=== PATIENT | male | born 1945 | race Caucasian/White ===

== ENCOUNTER 2024-02-06 09:50 | Outpatient (AMB) | payer OTHER, SELFPAY ==
--- NOTE | 2024-02-06 10:09 | HO.SPINEOV ---
Intake Visit Reasons: second opinion Allergies amoxicillin [From Augmentin] Allergy (Severe, Verified 02/06/24 10:15) Chest Pain clavulanic acid [From Augmentin] Allergy (Severe, Verified 02/06/24 10:15) Chest Pain colesevelam [From WelChol] Allergy (Severe, Verified 02/06/24 10:15) Diarrhea metoprolol Allergy (Severe, Verified 02/06/24 10:15) bradycardia lethargic ticagrelor [From Brilinta] Allergy (Severe, Verified 02/06/24 10:15) Respiratory Distress diclofenac [From Voltaren] Allergy (Unknown, Verified 02/06/24 10:15) dermatitis evolocumab [From Repatha SureClick] Allergy (Unknown, Verified 02/06/24 10:15) abscess and Boils Latex, Natural Rubber Allergy (Unknown, Verified 02/06/24 10:15) dermatitis Chocolate Allergy (Verified 02/06/24 10:15) Migraine aged cheese Allergy (Severe, Uncoded 02/06/24 10:15) Migraine Assessment & Plan Assessment & Plan (1) Gait abnormality: Code(s): R26.9 - Unspecified abnormalities of gait and mobility Category: Medical Plan This is a very nice 79-year-old [place] who presents today for evaluation of low back pain going down to his right posterior hamstring area as well as his right anterior thigh. He has had the symptoms now for few years and getting steadily worse. He underwent physical therapy and care tech. He saw Dr. Rogers in [place] who has a spine surgeon and was given the option of a 2 level lumbar fusion. He is being seen here today for evaluation of a 2nd opinion. The patient tells me that the pain is affecting his quality of life and his ability to function and mobilize. He has frequent falls and his reports that he has had to put a chairlift in the house because he can not get down the basement steps any longer. He has had a number of falls that have led to fractures. His also reports that he at times accident usual and can say things that may be do not fit with the appropriate social situation. He seems to be at times not thinking clearly either. 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 He had a UroLift procedure for his prostate. He did have exposure to agent orange when he was in the [place] war, but is not sure what side effects may have been caused by it. He denies any problems with his kidneys, lungs, liver. His and daughter suspect he may have had a stroke but he has never had it looked into. He denies any problems with bleeding disorders, blood clots, major abdominal surgeries, cancer. Social hx: He quit smoking in 2006, quit drinking in 1997 and uses no recreational drugs. Medications: BuSpar, hydrochlorothiazide, Viagra, sumatriptan, multivitamin, vitamin-C, magnesium, baby aspirin, trazodone, melatonin, the Jered root, betamethasone, Colace, brain inhaler, Flonase Allergies: He has allergies as listed in the [employer] list Physical exam: He is awake alert oriented, he is somewhat bradykinetic and slow with his movements. He is able to stand up out of a chair on his own but almost fell down when trying to get up onto the examining table. I watched him walk in the hallways and he is very unsteady. He has a levoscoliotic curvature to his spine when he stands. On static motor strength testing, he does have weakness of his hands bilaterally, worse on the left. His proximal motor strength in lower extremity strength is normal. He has 3+ reflexes on the right and 4+ reflexes on the left with a Daniel sign and clonus in his left ankle. He also has 1 beat of clonus in his right ankle as well. Cranial nerve testing is intact, he may have a slight pronator drift on the right arm. Imaging review: He has a lumbar MRI done at the [facility] showing severe stenosis at L4-5 with spondylolisthesis. Has other degenerative changes at L3-4 and L4-5 which are moderate. 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 I suspect this is where symptoms are coming from. He saw another surgeon Dr Rogers in [place] who wants to do what sounds like a two-level lumbar fusion. On my evaluation today, certainly he does have findings on the MRI to explain his symptoms but I am concerned about some other findings that I am seeing on his examination and his history. His family reports a distinct change in his affect, he has had increased frequency of falls over the last year. He has hyperreflexia unilaterally on the left. He also may have a slight pronator drift on the right. I am concerned that he may either have a cervical myelopathy given his hyperreflexia and his history of falls, or that he has some kind of brain pathology such as an old stroke, or possibly a subdural hematoma. Before considering anything with his back we need to look into these 2 issues. Thank you for allowing us to care for your patient. The total time spent with this visit with this patient was 45 minutes reviewing history, physical exam, lumbar imaging review, and implementation of treatment plan or further diagnostic testing Luis Felipe Loya MD,PhD [facility] Orders: Orders MR head/brain wo con Today R26.9 - Unspecified abnormalities of gait and mobility MR cervical spine wo con Today R26.9 - Unspecified abnormalities of gait and mobility Coding Level of Care Code New Pt Level 4 (32705) Diagnoses Gait abnormality R26.9
== END 2024-02-06 11:40 | disposition home or self-care (01) ==
PROVIDERS: PCP Internal Medicine; Visit Provider Physician Assistant
DX: R26.9 Unspecified abnormalities of gait and mobility (principal)
CPT/HCPCS: 99204

== ENCOUNTER → 2024-02-06 09:50 | Outpatient (BNVA) | payer OTHER, SELFPAY | PROVIDERS: PCP Internal Medicine; Visit Provider Physician Assistant ==

== ENCOUNTER 2024-03-12 15:00 | Outpatient (REF) | payer OTHER, SELFPAY ==
--- NOTE | ~2024-03-12 | XR_ITS ---
EXAMINATION: XR LUMBOSACRAL SPINE WITH OBLIQUES CLINICAL INFORMATION: Unspecified abnormalities of date and mobility COMPARISON: None available. TECHNIQUE: AP, both oblique, and lateral views of the lumbar spine. Lateral view of the lumbosacral junction. FINDINGS: There is levoscoliosis of lumbar spine and straightening of lumbar lordosis with multilevel degenerative spondylosis, including multilevel narrowing of the intervertebral disc spaces, more prominent at the level of L2-L3 with extensive marginal spurring. There is narrowing of L3-L4 and L4-L5 also. Flexion and extension views revealed no significant instability. Soft tissues are unremarkable. Visualized sacroiliac joints unremarkable XR/XR lumbar spine 4V min IMPRESSION: Multilevel degenerative spondylosis and levoscoliosis of lumbar spine
== END 2024-03-12 15:01 | disposition home or self-care (01) ==
LOC: HO.HOSX 15:00
PROVIDERS: PCP Internal Medicine; Visit Provider Physician Assistant
DX: R26.9 Unspecified abnormalities of gait and mobility (principal); M47.896 Other spondylosis, lumbar region
CPT/HCPCS: 72110

== ENCOUNTER 2024-03-12 15:00 | Outpatient (AMB) | payer OTHER, SELFPAY ==
--- NOTE | 2024-03-12 15:01 | A.SPINEOV_ITS ---
Intake Visit Reasons: MRI follow up Intake Note: Mr. Guidry is here today to F/u on MRI results. Program Arranger Required: No Allergies amoxicillin [From Augmentin] Allergy (Severe, Verified 02/06/24 10:15) Chest Pain clavulanic acid [From Augmentin] Allergy (Severe, Verified 02/06/24 10:15) Chest Pain colesevelam [From WelChol] Allergy (Severe, Verified 02/06/24 10:15) Diarrhea metoprolol Allergy (Severe, Verified 02/06/24 10:15) bradycardia lethargic ticagrelor [From Brilinta] Allergy (Severe, Verified 02/06/24 10:15) Respiratory Distress diclofenac [From Voltaren] Allergy (Unknown, Verified 02/06/24 10:15) dermatitis evolocumab [From Repatha SureClick] Allergy (Unknown, Verified 02/06/24 10:15) abscess and Boils Latex, Natural Rubber Allergy (Unknown, Verified 02/06/24 10:15) dermatitis Chocolate Allergy (Verified 02/06/24 10:15) Migraine aged cheese Allergy (Severe, Uncoded 02/06/24 10:15) Migraine Assessment & Plan Assessment & Plan (1) Gait abnormality: Code(s): R26.9 - Unspecified abnormalities of gait and mobility Category: Medical Plan Mr Guidry came in today to review his cervical MRI in his brain MRI. Please refer to my last note for the specifics of his problem we been dealing with. Unfortunately he did not bring the disc so I am unable to review the actual images, but the report suggests there has no significant spinal cord compression, cord signal change or mass lesions in the brain to explain his issues with mentation and his hyperreflexia. His hyperreflexia could be due to his BuSpar. He continues to sarabia with the right leg pain going into his posterior and anterior thigh. That is the original reason he came to see us. His tells me at this point he is very limited with any mobility. The pain is so bad that he wants to cry. He is now transitioned himself to a walker because he can barely get up and stand on his right leg. I reviewed his MRI done at [facility] with him again today, he has diffuse arthritis of the lumbar spine. 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 At L4-5 he has a spondylolisthesis with severe central canal stenosis. It is a grade 1 spondylolisthesis. At L3-4 he has an overgrowth of the facet on the right side. He also has other degenerative changes up at L1-2 and L2-3. I did standing x-rays and these show that it looks like he has significant collapse on the right L3-4 with a scoliotic curvature in addition to the spondylolisthesis at L4-5. It is hard to see on the x-ray L5-S1 is completely auto fused or not. I explained to him that the typical approach Dr. Loya would choose for this would be an oblique lumbar interbody fusion. This would give him the option of the biggest cage and the chance for correction of the scoliosis with the most structural support. Alternatively, a trans Kambin approach can also be used. I will review all the imaging with Dr. Loya and get back to the patient with a final plan. I would like to get a hard copy of the discs of the cervical and brain MRI just to review myself. Pt was given risk and benefits of surgery including but not limited to infection, hematoma , nerve injury,durotomy, weakness,bowel/bladder injury, persistent pain, hardware failure as well as the option to continue with conservative treatment and patient wishes to proceed with surgery. Pt is aware they should stop their motrin, aspirin 7 days prior to surgery. All questions were answered to the best of our ability. Total amount of time spent in this visit was 20 minutes in discussion of symptoms, lumbar imaging results and subsequent plan of care Luis Felipe Loya MD,PhD [facility] Orders: Orders XR lumbar spine 4V min Today R26.9 - Unspecified abnormalities of gait and mobility Coding Level of Care Code Est Pt Level 3 (09440) Diagnoses Gait abnormality R26.9
== END 2024-03-12 15:36 | disposition home or self-care (01) ==
PROVIDERS: PCP Internal Medicine; Visit Provider Physician Assistant
DX: R26.9 Unspecified abnormalities of gait and mobility (principal)
CPT/HCPCS: 99213

== ENCOUNTER 2024-04-21 08:23 | Inpatient (IN) | payer MEDICARE, SELFPAY ==
[2024-04-13 16:47] VITALS: BMI 35.0
--- NOTE | 2024-04-20 11:58 | HO.ANESPROP2 ---
Documented by User: Cecile Awad NP 04/20/24 12:00 HPI - Anesthesia Eval Consult details Narrative: 79yo M for L3-4,L4-5 Oblique Lumbar Interbody Fusion Medically optimized per PCP [facility] Active Problems Active Problems: All Active Problems Gait abnormality (Acute) Past Medical History Medical History Dependent on walker for ambulation BPH (benign prostatic hyperplasia) Depression COPD (chronic obstructive pulmonary disease) Personal history of COVID-19 (~08/2023) Sleep apnea Migraine Anxiety HTN (hypertension) Surgical History Surgical History History of varicose vein procedure History of total bilateral knee replacement (TKR) Hx of hernia repair History of surgery on lower extremity History of surgery on wrist Hx of basal cell carcinoma excision Social History Social History Are you a primary direct care specialist to a significant other at home: No Do you presently have visiting nurse or other home services: No Comment: aware of trip hazard Patient Tobacco Use Status: Former Tobacco user Tobacco use type: Cigarette Smoked in Last 30 Days: No Use of substances other than those prescribed or required for medical reasons: No Have you been hit, kicked, punched, or otherwise hurt by someone within the past year? If so, by whom?: No Are you DNR?: No Advance Directives: No Advance Directives Information Provided: Yes Advance Directives on File: No Recently lost weight without trying: No Nutrition Risks: Surgical patient >75years Poor oral hygiene: No Meds Allergies Allergy/AdvReac Type Severity Reaction Status Date / Time amoxicillin [From Augmentin] Allergy Severe Chest Pain Verified 04/21/24 08:47 Chocolate Allergy Severe Migraine Verified 04/21/24 08:47 clavulanic acid Allergy Severe Chest Pain Verified 04/21/24 08:47 [From Augmentin] colesevelam [From WelChol] Allergy Severe Diarrhea Verified 04/21/24 08:47 diclofenac [From Voltaren] Allergy Severe dermatitis Verified 04/21/24 08:47 evolocumab Allergy Severe abscess Verified 04/21/24 08:47 [From Repatha SureClick] and Boils Latex, Natural Rubber Allergy Severe dermatitis Verified 04/21/24 08:47 metoprolol Allergy Severe bradycardia Verified 04/21/24 08:47 lethargic ticagrelor [From Brilinta] Allergy Severe Respiratory Verified 04/21/24 08:47 Distress atorvastatin [From Lipitor] Allergy myositis Verified 04/21/24 08:47 rosuvastatin [From Crestor] Allergy myositis Verified 04/21/24 08:47 aged cheese Allergy Severe Migraine Uncoded 02/06/24 10:15 Home Medications ?Medication ?Instructions ?Recorded ?Confirmed ?Last Taken ?Type aspirin 81 mg tablet,delayed 81 mg PO DAILY 02/06/24 04/16/24 04/07/24 History release buspirone 30 mg tablet 30 mg PO BID 02/06/24 04/13/24 04/21/24 06:00 History sildenafil 100 mg tablet 100 mg PO DAILY PRN Sexual Activity 02/06/24 04/16/24 Unknown History losartan 50 mg-hydrochlorothiazide 1 tab PO DAILY 04/13/24 04/13/24 04/20/24 History 12.5 mg tablet melatonin 5 mg tablet 5 mg PO BEDTIME PRN Insomnia 04/13/24 04/13/24 04/20/24 History multivitamin 1 tab PO DAILY 04/13/24 04/13/24 04/20/24 History nystatin 100,000 unit/gram topical topical TID 04/13/24 Unknown History powder (Nystop) sumatriptan succinate 50 mg tablet 50 mg PO Q2-4H PRN Headache 04/13/24 04/13/24 Unknown History tadalafil 5 mg tablet (Cialis) 5 mg PO DAILY 04/13/24 04/13/24 Unknown History trazodone 50 mg tablet 25 mg PO BEDTIME PRN Sleep 04/13/24 04/13/24 Unknown History ascorbic acid (vitamin C) 500 mg 1,000 mg PO DAILY 04/16/24 04/16/24 Unknown History tablet,extended release (Vitamin C ER) budesonide-formoterol HFA 160 2 puff inhalation DAILY 04/16/24 04/16/24 04/20/24 History mcg-4.5 mcg/actuation aerosol inhaler (Breyna) docusate sodium 100 mg tablet 100 mg PO DAILY PRN Constipation 04/16/24 04/16/24 Unknown History fluticasone propionate 50 2 spray intranasal DAILY 04/16/24 04/16/24 04/20/24 History mcg/actuation nasal spray,suspension magnesium 200 mg tablet 200 mg PO DAILY 04/16/24 04/16/24 04/20/24 History melatonin 10 mg tablet 10 mg PO BEDTIME PRN Insomnia 04/16/24 04/16/24 Unknown History valerian root 450 mg capsule 450 mg PO DAILY 04/16/24 04/16/24 04/20/24 History Exam Height,Weight and Vital Signs: Height 5 ft 8 in Weight 104.326 kg Pertinent Lab Results Pertinent Lab Results: Laboratory Tests 04/16/24 10:08 Blood Type A Positive Antibody Screen NEGATIVE CBC and BMP from outside facility 03/2024 WNL Narrative Narrative: EKG 03/2024 NSR Assessment and Plan Assessment Anesthesia Assessment: Chart Reviewed Documented by User: Mohan Duckworth MD 04/21/24 11:03 [facility] Past Medical History Medical History Dependent on walker for ambulation BPH (benign prostatic hyperplasia) Depression COPD (chronic obstructive pulmonary disease) Personal history of COVID-19 (~08/2023) Sleep apnea Migraine Anxiety HTN (hypertension) Family History Family history of problems with anesthesia: No Surgical History Surgical History History of varicose vein procedure History of total bilateral knee replacement (TKR) Hx of hernia repair History of surgery on lower extremity History of surgery on wrist Hx of basal cell carcinoma excision History of Problems with Anesthesia: No Social History Social History Are you a primary direct care specialist to a significant other at home: No Do you presently have visiting nurse or other home services: No Comment: aware of trip hazard Patient Tobacco Use Status: Former Tobacco user Tobacco use type: Cigarette Smoked in Last 30 Days: No Use of substances other than those prescribed or required for medical reasons: No Have you been hit, kicked, punched, or otherwise hurt by someone within the past year? If so, by whom?: No Are you DNR?: No Advance Directives: No Advance Directives Information Provided: Yes Advance Directives on File: No Recently lost weight without trying: No Nutrition Risks: Surgical patient >75years Poor oral hygiene: No Meds Allergies Allergy/AdvReac Type Severity Reaction Status Date / Time amoxicillin [From Augmentin] Allergy Severe Chest Pain Verified 04/21/24 08:47 Chocolate Allergy Severe Migraine Verified 04/21/24 08:47 clavulanic acid Allergy Severe Chest Pain Verified 04/21/24 08:47 [From Augmentin] colesevelam [From WelChol] Allergy Severe Diarrhea Verified 04/21/24 08:47 diclofenac [From Voltaren] Allergy Severe dermatitis Verified 04/21/24 08:47 evolocumab Allergy Severe abscess Verified 04/21/24 08:47 [From Repatha SureClick] and Boils Latex, Natural Rubber Allergy Severe dermatitis Verified 04/21/24 08:47 metoprolol Allergy Severe bradycardia Verified 04/21/24 08:47 lethargic ticagrelor [From Brilinta] Allergy Severe Respiratory Verified 04/21/24 08:47 Distress atorvastatin [From Lipitor] Allergy myositis Verified 04/21/24 08:47 rosuvastatin [From Crestor] Allergy myositis Verified 04/21/24 08:47 aged cheese Allergy Severe Migraine Uncoded 02/06/24 10:15 Home Medications ?Medication ?Instructions ?Recorded ?Confirmed ?Last Taken ?Type aspirin 81 mg tablet,delayed 81 mg PO DAILY 02/06/24 04/16/24 04/07/24 History release buspirone 30 mg tablet 30 mg PO BID 02/06/24 04/13/24 04/21/24 06:00 History sildenafil 100 mg tablet 100 mg PO DAILY PRN Sexual Activity 02/06/24 04/16/24 Unknown History losartan 50 mg-hydrochlorothiazide 1 tab PO DAILY 04/13/24 04/13/24 04/20/24 History 12.5 mg tablet melatonin 5 mg tablet 5 mg PO BEDTIME PRN Insomnia 04/13/24 04/13/24 04/20/24 History multivitamin 1 tab PO DAILY 04/13/24 04/13/24 04/20/24 History nystatin 100,000 unit/gram topical topical TID 04/13/24 Unknown History powder (Nystop) sumatriptan succinate 50 mg tablet 50 mg PO Q2-4H PRN Headache 04/13/24 04/13/24 Unknown History tadalafil 5 mg tablet (Cialis) 5 mg PO DAILY 04/13/24 04/13/24 Unknown History trazodone 50 mg tablet 25 mg PO BEDTIME PRN Sleep 04/13/24 04/13/24 Unknown History ascorbic acid (vitamin C) 500 mg 1,000 mg PO DAILY 04/16/24 04/16/24 Unknown History tablet,extended release (Vitamin C ER) budesonide-formoterol HFA 160 2 puff inhalation DAILY 04/16/24 04/16/24 04/20/24 History mcg-4.5 mcg/actuation aerosol inhaler (Breyna) docusate sodium 100 mg tablet 100 mg PO DAILY PRN Constipation 04/16/24 04/16/24 Unknown History fluticasone propionate 50 2 spray intranasal DAILY 04/16/24 04/16/24 04/20/24 History mcg/actuation nasal spray,suspension magnesium 200 mg tablet 200 mg PO DAILY 04/16/24 04/16/24 04/20/24 History melatonin 10 mg tablet 10 mg PO BEDTIME PRN Insomnia 04/16/24 04/16/24 Unknown History valerian root 450 mg capsule 450 mg PO DAILY 04/16/24 04/16/24 04/20/24 History Exam Airway Mallampati Class: III TM Dist: >3cm Neck ROM: Full Assessment and Plan Assessment Anesthesia Assessment: Anesthesia Plan Discussed Final Anesthetic Review Family History of Problems with Anesthesia: No History of Problems with Anesthesia: No NPO: Yes ASA Class: III Final Preanesthetic Review: No Changes in Pt Med Stat, Meds/Allgs Chart Reviewed, Consent Obtained/Reviewed and Anes Risks/Benef Reviewed Patient Risk: Intermediate Procedure Risk: Intermediate Anesthetic Plan Anesthetic Plan: GA Disposition: Standard PACU
[2024-04-21] VITALS (17 sets, daily range): BP systolic 140–173; BP diastolic 60–106; PULSE 53–86; RESP 12–20; TEMP 35.7–36.7; O2SAT 93–98; BMI 34.5; BMI 37.4
--- NOTE | ~2024-04-21 | FL_ITS ---
EXAMINATION: XR FLUOROSCOPY WITH IMAGES CLINICAL INFORMATION: L3-L4, L4-L5 OLIF. COMPARISON: Lumbar spine radiographs 03/12/2024. TECHNIQUE: Fluoroscopy Supervised By: Dr. Loya. Fluoroscopy Time: 2 min 58 sec. Cumulative Dose: 180.02 mGy. DAP: 54.904 Gycm2. Images: 2. FINDINGS: Intraoperative fluoroscopy and spot films were performed during a procedure in the OR. Imaging demonstrates posterior pedicular screws from L3 through L5 with interbody devices at each of the intervening disc spaces. Please correlate with Dr. Loya' report for complete details. FL/FL guidance in OR IMPRESSION: Intraoperative fluoroscopy and spot films were obtained. Please see Dr. Loya' report for complete details.
[2024-04-21] MEDS: methocarbamoL 750 MG TABLET PO (08:49)
[2024-04-21] MEDS: Gabapentin 300 MG CAPSULE PO ×2 (08:49→21:24)
[2024-04-21] MEDS: Lactated Ringers 1,000 ML 100 ML IVCONT (09:00)
[2024-04-21] MEDS: vancomycin HCL 1,500 MG in 0.9 % Sodium Chloride 500 ML 333.33 MG IV (09:29)
--- NOTE | 2024-04-21 11:27 | MHC.SHP ---
Pre-Procedural Eval Section A - 24 Hr Update-Section A only Date of Service: 04/21/24 Section B - Complete if H&P > 30 days Chief Complaint: Unspecified abnormalities of gait and mobility Allergies: Allergies Allergy/AdvReac Type Severity Reaction Status Date / Time amoxicillin [From Augmentin] Allergy Severe Chest Pain Verified 04/21/24 08:47 Chocolate Allergy Severe Migraine Verified 04/21/24 08:47 clavulanic acid Allergy Severe Chest Pain Verified 04/21/24 08:47 [From Augmentin] colesevelam [From WelChol] Allergy Severe Diarrhea Verified 04/21/24 08:47 diclofenac [From Voltaren] Allergy Severe dermatitis Verified 04/21/24 08:47 evolocumab Allergy Severe abscess Verified 04/21/24 08:47 [From Repatha SureClick] and Boils Latex, Natural Rubber Allergy Severe dermatitis Verified 04/21/24 08:47 metoprolol Allergy Severe bradycardia Verified 04/21/24 08:47 lethargic ticagrelor [From Brilinta] Allergy Severe Respiratory Verified 04/21/24 08:47 Distress atorvastatin [From Lipitor] Allergy myositis Verified 04/21/24 08:47 rosuvastatin [From Crestor] Allergy myositis Verified 04/21/24 08:47 aged cheese Allergy Severe Migraine Uncoded 02/06/24 10:15 Review of Systems Sugical H&P ROS: Negative: Constitution, Cardiovascular, Respiratory, Neurological, Psychiatric, Hem-Onc, Allergic/Immunologic, Gastrointestinal, Genitourinary, Musculoskeletal, Integumentary, Endocrine and Eyes/Ears/Nose/Throat Exam Surgical H&P Exam: Not Evaluated: HEENT, Not Evaluated: Heart, Not Evaluated: Lungs, Not Evaluated: Extremities, Not Evaluated: Abdomen, Not Evaluated: Skin and Not Evaluated: Neurological Exam Comment: The patient is A&OX4. NAD, well appearing. No evidence of recent abdominal/back surgery. Normal respirations. Plan Diagnosis/Plan: Unchanged I have reviewed the history and physical and performed a pertinent physical examination on my patient. No changes have occurred unless specified. Plan remains the same, L3-4, L4-5 OLIF Time Spent With Patient Time: Total time managing care of this patient today __15__ minutes.
--- NOTE | 2024-04-21 15:05 | P.OP_ITS ---
Operative Note Operative Note Date of Service: 04/21/24 Narrative: Preop Diagnosis: 1.) Lumbar degenerative scoliosis, lumbar spondylolisthesis, spinal stenosis 2.) Back pain, neurogenic claudication Procedure: 1) L3-4, L4-5 discectomy, arthrodesis and implantation cage through an ante rolateral, retroperitoneal approach 2) L3-L5 posterior instrumented fusion 3) allograft 4) injection of 10 cc of Exparel at the bilateral L4 transverse process for a muscular erector spinae block and additional Exparel in paravertebral tissue for postop management Consent Informed Consent was obtained for this operation. I have explained the nature, purpose and benefits of the operation. I have discussed the risks and benefit of the operation including possible complications or adverse events with patient/family. Alternative(s) were discussed with the patient with their relative benefits and risks as well as the consequences of not accepting the operation were included in obtaining consent. Surgeon: KENNEDI PRICE MD, PHD Procedure Assisted By: SHAVON Ashraf Description of Procedure This 79-year-old male suffering from back pain and neurogenic claudication. Imaging reviews lumbar degenerative scoliosis, lumbar spondylolisthesis and central stenosis and foraminal stenosis. The patient was offered an oblique lumbar interbody fusion L3-4, L4-5 to correct the deformity and indirectly decompress the nervous structures. The procedure complications were explained. The patient was consented. The patient was brought to the operating room and endotracheally intubated. The patient was turned in a lateral position with the left side up. Prep and drape was done followed by timeout. A small incision was made in the left lower abdominal quadrant. The muscle fascia was opened after which the 3 muscle layer was split to enter the retroperitoneal space. Dilators were docked in the anterior one third of the L4-5 disc space followed by a retractor. The retractor was opened. The L4-5 disc space was exposed. An annulotomy was done after which an elevator Goncalves was used to release the disc material from its endplates and to perforate the contralateral side. A partial discectomy was done. An 8 and 10 mm height trial implant was inserted. The discectomy was completed. The endplates were prepared. An 12 x 50 mm with 6 degree lordosis 4 web cage filled with allograft was inserted into the disc space under fluoroscopic guidance. This resulted in reduction of the spondylolisthesis and increase the foraminal height.. The retractor was removed and reinserted at the L3-4 level. Sequential dilators were inserted under fluoroscopic guidance followed by placement of the retractor. An annulotomy was done. An elevated Goncalves was used to release the disc material from the endplates and to perforate contralateral annulus. Partial diskectomy was done. An 8 mm trial was inserted followed by a 10 mm trial. The diskectomy was completed. The endplates were prepared after which a 10 mm x 50 mm and 6 degree lordosis 4 web cage was inserted with allograft. Hemostasis was done. The incision was closed in 2 layers. Steri-Strips used to approximate incision. An OpSite with Tegaderm was used to cover the incision. This marked first part of the procedure. The patient was turned prone on the Britton spine table. 2C arms were installed for fluoroscopy. Prep and drape was done followed by a second timeout. 2 paramedian incisions were made lateral from the L3-L5 pedicles. The muscle fascia was opened after which the muscle layer was split bluntly to expose the posterolateral gutter. The following steps were taken. A pediguard tap was used to create a transpedicular trajectory into the vertebral body. A K wire was placed. A specially designed instrument was advanced over the K wire to decorticate the posterolateral gutter in preparation for the posterolateral fusion. A pedicle screw was advanced over the K wire and the K wire was removed. The steps were done for the bilateral L3, L4 and L5 pedicles. A total of 6 screws were placed with a diameter of 6.5 x 50 mm in the bilateral L3 pedicles and 6.5 x 45 mm in the bilateral L4 and L5 pedicles. The bone quality was suboptimal.. Pedicle screws were connected with 70 mm darrell bilaterally and locked down with locking caps. The L4 screw on the left pulled back slightly and possibly L5. The extension towers were removed. The posterolateral gutter was filled with allograft to complete the posterolateral L3-L5 fusion Hemostasis was done and the incision was closed in 2 layers. Steri-Strips were used to approximate the incision. An OpSite were taken and was used to cover the incision. All sponge and needle counts were correct. Patient was extubated and transferred in stable is to recovery room. Anesthesia: General Estimated Blood Loss (ml): 40 ml Duration of Surgery: 3 hours Complications: None Postoperative Plan: Admit to inpatient for observation
[2024-04-21] MEDS: fentaNYL citrate/PF 100 MCG/2 ML VIAL 50 MCG IVPUSH ×4 (16:11→16:35)
[2024-04-21] MEDS: Ketorolac Tromethamine 15 MG/ML VIAL IVPUSH (17:57)
[2024-04-21] MEDS: 0.9 % Sodium Chloride 1,000 ML 75 ML IVCONT (17:58)
[2024-04-21] MEDS: oxyCODONE HCl Immed Release 5 MG TABLET 10 MG PO (18:13)
--- NOTE | 2024-04-21 20:36 | PHA.MEDREC ---
Addendum entered by Marine Mendoza RPh 04/21/24 20:44: reviewed by [facility]. Original Note: Pharmacy Consult ? Medication Reconciliation Pharmacy has completed the medication reconciliation. Patient a little groggy but was able to confirm his. He states he is taking Aspirin 81mg MO WE FR typically and due to him getting surgery he stopped it about 2 weeks he said. Patient states he is still using Nystatin powder once daily after a shower.
[2024-04-21] MEDS: HYDROmorphone HCl 1 MG/ML SYRINGE IVPUSH (21:21)
[2024-04-21] MEDS: busPIRone HCl 10 MG TABLET 30 MG PO (21:24)
[2024-04-21] MEDS: vancomycin HCL 1,000 MG in 0.9 % Sodium Chloride 250 ML 270 MG IV (21:32)
[2024-04-22] MEDS: Ketorolac Tromethamine 15 MG/ML VIAL IVPUSH ×2 (02:16→10:19)
--- NOTE | 2024-04-22 07:04 | P.DS_ITS ---
DS: Providers Provider Date of Service: 04/22/24 Date of admission: 04/21/24 08:23 Primary care physician: Parviz Schumacher MD DS: Summary Time Attestation Discharge Coordination Time (in mins): 30 Quality: Safe Use of Opioids Does Pt have an Active Cancer Diagnosis on the Problem List?: No Quality: Stroke Does the patient have a stroke diagnosis?: No Physical Exam Vital Signs: Vital Signs: Last Vital Signs Temp 97.3 F 04/21/24 22:00 Pulse 67 04/21/24 22:00 Resp 18 04/21/24 22:00 BP 140/60 H 04/21/24 22:00 Pulse Ox 98 04/21/24 22:00 O2 Del Method Room Air 04/21/24 22:00 O2 Flow Rate 2 04/21/24 17:31 BMI result Body Mass Index 37.4 Discharge Plan Discharge Anticipated Discharge Date/Time: 04/22/24 07:04 Patient Disposition: Xfer Inpatient Rehab Fac Discharge Diagnosis: s/p L3-5 OLIF Referrals: Parviz Schumacher MD [Primary Care Provider] - 1 Week Discharge Medications: Continued nystatin [Nystop] 100,000 unit/gram powder 1 appl topical DAILY PRN (Reason: After Shower) losartan-hydrochlorothiazide 50-12.5 mg tablet 1 tab PO DAILY multivitamin Tablet 1 tab PO DAILY sumatriptan succinate 50 mg Tablet 50 mg PO Q2-4H PRN (Reason: Headache) Rx Instructions: do not exceed 4 doses per 24 hrs melatonin 5 mg Tablet 5 mg PO BEDTIME PRN (Reason: Insomnia) tadalafil [Cialis] 5 mg Tablet 5 mg PO DAILY ascorbic acid (vitamin C) [Vitamin C] 500 mg Tablet Extended Release 1,000 mg PO DAILY magnesium 200 mg Tablet 200 mg PO DAILY valerian root 450 mg Capsule 450 mg PO DAILY budesonide-formoterol [Breyna] 160-4.5 mcg/actuation HFA aerosol inhaler 2 puff INHALATION DAILY PRN (Reason: SOB/Wheezing) docusate sodium 100 mg Tablet 100 mg PO DAILY PRN (Reason: Constipation) fluticasone propionate 50 mcg/actuation Anza,Suspension 2 spray INTRANASAL DAILY PRN (Reason: Allergies) Rx Instructions: administer into each nostril buspirone 30 mg tablet 30 mg PO BID sildenafil 100 mg tablet 100 mg PO DAILY PRN (Reason: Sexual Activity) Rx Instructions: administer 30 minutes to 4 hours before activity Held aspirin 81 mg tablet,delayed release (DR/EC) 81 mg PO MOWEFR Hold Instructions: Resume on 04/25/24. Discharge Orders: Discharge Order (Routine); Ordered 04/22/24 Ordered By: Sedrick Fam Diet: Advance to usual diet Activity on Discharge: As tolerated Stand Alone Forms: Patient Portal Discharge page Print Language: Panamanian Activity Restrictions/Additional Instructions: After your spinal surgery we ask you to observe the following restrictions/guidelines: Activity: With lumbar fusion surgery it is normal to have days in the first couple of weeks where you have increased leg pain. This usually lasts 1-2 days and self resolves with the continuation of medication. Attempt to stay mobile and continue activity as tolerated. It is normal to feel some discomfort as you increase your activity, but that will improve with time. We ask you avoid heavy lifting or activities that cause pain. As a general rule, 8lbs is a safe limit for lifting right after surgery. Walk as much as you feel comfortable but not to exhaustion. You will feel extra tired the first few days after surgery. Stay well hydrated. It is OK to walk up and down stairs You may return to driving when you are off narcotics (such as vicodin, oxycodone, dilaudid, etc), and you are back to normal functional capacity. If you have any concerns please check with office before driving. Return to work is specific to each patient and each surgery, so please speak with your doctor/PA at first follow up. Please bring paperwork such as FMLA at that time if you need it filled out. Medications: It is recommended that you take Tylenol 500 mg every 4 hours for the 1st week postoperatively. We will give you a short supply of narcotics after surgery (usually one weeks worth). ??Please use this for breakthrough pain that is refractory to the Tylenol ibuprofen and gabapentin. If you need more please call the office but do not use more than prescribed. You will need to give our office 48 hours notice if you need narcotics refilled and we do not fill narcotics on weekends or evenings. If you are on a narcotic, it is a good idea to take a stool softener such as colace or senna to avoid constipation If you take blood thinner such as aspirin, Plavix, Coumadin, Effient, Eliquis etc for conditions such as Afib, DVT, Pulmonary embolus, coronary disease, stents etc please speak with your surgeon about specific details as to when you can resume these medications. You can resume NSAIDs on post op day 1 (eg: Motrin, Naproxen, etc). Follow up: Please call the office, , after surgery to arrange a 3 week follow up for wound check. Wound Care: You may remove your dressing on the first day after surgery. ?You may ?leave open to air. Please do not remove the steri strips underneath. they will fall off on their own in one week. IT IS NORMAL FOR THE WOUND TO OOZE OR BE BLOODY FOR A FEW DAYS AFTER SURGERY. ?IF THIS HAPPENS JUST PLACE NEW DRESSING OVER IT TO AVOID STAINING CLOTHES. You may shower on post op day # 1 We ask that you do not let the water soak the wound. If it does get wet, just towel dry lightly. Please do not scrub your incision or place any type of chemical/ointment on the wound. No tub baths, pools or jacuzzis for one month. If you have any leaking or redness from your wound, or fevers, please call office Care Plan Goals: Returned to normal activity as tolerated Health Concerns: None Plan of Treatment: Follow-up in clinic in 2-3 weeks Assessment: POD: 1 Procedure: L3-5 JOSE Hager was seen this morning in bed on 3-S. Patient reports he is having some newer left-sided leg pain well localized to the lateral thigh. He still reports pain in his low back with good relief from pain medication. He did not tolerate Dilaudid push very well overnight, but did tolerate p.o. oxycodone. He endorses good pain relief from this. He is voiding well bedside & tolerating diet. No mendez. Afebrile, vital signs stable. Full strength 5/5 LE. Back dressings have some staining without signs of hematoma. No active sanguineous drainage. Area is dry. Plan: Patient meets criteria to be medically discharged to rehab. He was seen at bedside with Dr. Loya who agrees with this plan. I gave a prescription of oxycodone to his nurse to be transferred with him to rehab. The patient understands and agrees to this plan. He does not feel that his will be able to care for him by herself at home and would like the extra assistance that long-term/rehab will provide. Sedrick Loya MD,PhD [facility]
[2024-04-22] MEDS: oxyCODONE HCl Immed Release 5 MG TABLET 10 MG PO ×3 (07:32→21:00)
[2024-04-22 07:50] VITALS: BP 160/84; PULSE 89; RESP 18; TEMP 37.6; O2SAT 94
--- NOTE | 2024-04-22 08:11 | PC.NURSE ---
carpenter packing report 04/21/24: Upon assuming care of pt at 19:00, pt was A&Ox3, S/P Lumbar fusion. During assessment pt was sleepy/drowsy, arousable to name, and answer questions properly.. This RN and assigned SENIOR SAS PROGRAMMER attempted to get the pt out of bed, but was unable due to feeling pain and weakness. Pt complained of 8/10 pain and PRN Dilaudid was given at 21:21, see MAR. Pt was due to void after 22:00, but was unable to void on his own. Pt was bladder scan for 300ml, but per straight cath order to straight cath pt if unable to void after 4 HRS. Pt was straight cath for 175ml concentrated urine at 02:50. Pt due to void by 08:00, if unable to void, pt will need to be straight cath again. This RN gave report to oncoming RN, plan of care ongoing. Will continue to monitor.
[2024-04-22] MEDS: Fluticasone/Vilanterol 200/25 BLST.W.DEV 1 PUFF INHALE (08:23)
[2024-04-22 08:24] VITALS: PULSE 89; RESP 16; O2SAT 94
[2024-04-22 08:25] VITALS: PULSE 89
--- NOTE | 2024-04-22 08:35 | HO.POSTANES ---
Post Anesthesia Evaluation Post Anesthesia Evaluation Date of Service: 04/21/24 Vital Signs: Vital Signs Temp Pulse Resp BP Pulse Ox O2 Del Method O2 Flow Rate 04/22/24 08:25 89 04/22/24 08:24 89 16 04/22/24 07:50 99.7 F 89 18 160/84 H 94 Nasal Cannula 2 04/21/24 22:00 97.3 F 67 18 140/60 H 98 Room Air Anesthesia: General Mental Status: Awake Pain Control: Satisfactory Nausea/Vomiting: None Hydration: Adequate Anesthesia-Related Issues: No Anes. Related Issues Comments: pain /10, cannot void, drinking fluids, straight cath done, prior straight mendez in past pt says prostrate trauma.
[2024-04-22] MEDS: Magnesium Oxide 400 MG TABLET 200 MG PO (08:43)
[2024-04-22] MEDS: hydroCHLOROthiazide 12.5 MG TABLET PO (08:43)
[2024-04-22] MEDS: Gabapentin 300 MG CAPSULE PO ×3 (08:43→21:01)
[2024-04-22] MEDS: Losartan Potassium 50 MG TABLET PO (08:43)
[2024-04-22] MEDS: Ascorbic Acid 500 MG TABLET 1000 MG PO (08:43)
[2024-04-22] MEDS: busPIRone HCl 10 MG TABLET 30 MG PO ×2 (08:43→21:01)
[2024-04-22] MEDS: Acetaminophen 325 MG TABLET 975 MG PO ×3 (08:43→21:01)
[2024-04-22] MEDS: Multivitamin TABLET 1 TAB PO (08:43)
--- NOTE | 2024-04-22 11:26 | MHC.CM.PN ---
Addendum entered by Tori Soler RN 04/22/24 15:07: Liaison is Margret [phone] Addendum entered by Tori Soler RN 04/22/24 15:05: Patient accepted bed @ [facility]in [facility]. CM obtained [employer] auth and completed facility's PASRR packet. Facility to submit PASRR. Plan to admit 04/23, once PASRR approved. Original Note: [facility] delivered. Patient from home w/ . Uses a cane & rollator PRN. assists w/ ADLs PRN. [facility] CPAP, [facility] P[facility] Parviz Schumacher MD [facility] naming Deborah and daughter Georgina as HCA's. DP: PT rec STR. No preferences. Referrals sent via [facility]. Awaiting bed offer. CM will continue to follow.
[2024-04-22 14:00] VITALS: PULSE 77; RESP 18; TEMP 37.1; O2SAT 95
--- NOTE | 2024-04-22 14:28 | HO.NEUROPN_ITS ---
Neurosurgery Operative Note Date of Service: 04/22/24 Narrative: POD: 1 Procedure: L3-5 JOSE Hager was seen this morning in bed on 3-S. He reports he is having some newer left-sided leg pain well localized to the lateral thigh. He still reports pain in his low back with good relief from pain medication. He did not tolerate Dilaudid IV push very well overnight, but did tolerate p.o. oxycodone. He endorses good pain relief from this. He is voiding well bedside & tolerating diet. No mendez. Afebrile, vital signs stable. Full strength 5/5 LE. Back dressings have some staining without signs of hematoma. No active sanguineous drainage. Area is dry. Plan: Patient meets criteria to be medically discharged to rehab. He was seen at bedside with Dr. Loya who agrees with this plan. I gave a prescription of oxycodone to his nurse to be transferred with him to rehab. The patient und erstands and agrees to this plan. He does not feel that his will be able to care for him by herself at home and would like the extra assistance that [facility] will provide. I stopped the patients IV Diladudid / Ketorolac, and added Methocarbamol PO to be given TID. He is currently all set from a medical discharge perspective - we are just waiting for his insurance company to approve his discharge to rehab (this is per case management). Sedrick Loya MD,PhD [facility]
[2024-04-22 15:03] VITALS: BP 135/62; PULSE 73; RESP 18; TEMP 36.9; O2SAT 94
[2024-04-22] MEDS: methocarbamoL 750 MG TABLET PO ×2 (15:10→21:01)
[2024-04-22 19:31] VITALS: BP 130/60; PULSE 76; RESP 18; TEMP 36.6; O2SAT 94
[2024-04-23] MEDS: oxyCODONE HCl Immed Release 5 MG TABLET PO (01:32)
[2024-04-23 02:43] VITALS: BP 168/82; PULSE 81; RESP 16; TEMP 36.9; O2SAT 92
[2024-04-23] MEDS: Acetaminophen 325 MG TABLET 975 MG PO ×2 (03:08→09:00)
--- NOTE | 2024-04-23 03:54 | PC.NURSE ---
Pt unable to void, c/o of 8/10 bladder pain, abdomen distended. Pt bladder scan for 774ml. MD Felix Jackson notified of the situation. Pervious shift pt was straight cath x2. MD Felix Jackson placed order for Padilla catheter. 16g Kyrgyz Padilla catheter placed at 03:40 with good effect, tea color urine. Plan of care ongoing. Will continue to monitor.
[2024-04-23] MEDS: Fluticasone/Vilanterol 200/25 BLST.W.DEV 1 PUFF INHALE (07:52)
[2024-04-23 07:54] VITALS: PULSE 82; RESP 20; O2SAT 93
[2024-04-23 08:06] VITALS: BP 164/96; PULSE 81; RESP 18; TEMP 37.1; O2SAT 93
[2024-04-23] MEDS: Ascorbic Acid 500 MG TABLET 1000 MG PO (09:00)
[2024-04-23] MEDS: hydroCHLOROthiazide 12.5 MG TABLET PO (09:01)
[2024-04-23] MEDS: methocarbamoL 750 MG TABLET PO (09:01)
[2024-04-23] MEDS: busPIRone HCl 10 MG TABLET 30 MG PO (09:01)
[2024-04-23] MEDS: Magnesium Oxide 400 MG TABLET 200 MG PO (09:01)
[2024-04-23] MEDS: Losartan Potassium 50 MG TABLET PO (09:01)
[2024-04-23] MEDS: Gabapentin 300 MG CAPSULE PO (09:01)
[2024-04-23] MEDS: Multivitamin TABLET 1 TAB PO (09:01)
--- NOTE | 2024-04-23 13:42 | MHC.CM.PN ---
Patient medically cleared for dc to STR @ [facility] in [facility] via BLS at 245pm. , RN and facility aware. Patient and aware and agreeable to plan.
--- NOTE | 2024-05-05 10:45 | W.MHC.F2F ---
Service Date Service Date: 05/05/24 Encounter Date of encounter: 05/05/24 Reasons for Services Signs and symptoms assessed: s/p lumbar fusion Reason for long-term: neurological assessment, wound care, medication management and medication treatment Reason for physical therapy: home safety and mobility, therapeutic exercises and gait/transfer training Reason for occupational therapy: home safety and mobility, gait/transfer training and ADL training Homebound: Leaving the home is medically contraindicated at this time without the asist of a device and/or another person due th the listed conditions above and below. Reason homebound: unsteady gait / fall risk, leg weakness, pain with transfers and weakness related to hospital stay Certification: Based on the above findings, I certify that this patient is confined to the home and needs intermittent long-term care, physical therapy and/or speech therapy, or continues to need occupational therapy. The patient is under my care, and I have initiated the establishment of the plan of care. The patient will be followed by a physician who will periodically review the plan of care. Time Spent With Patient Time: Total time managing care of this patient today __30__ minutes.
== END 2024-04-23 14:40 | disposition skilled nursing facility (03) | DRG 458 ==
LOC: HO.SSSA 11:32 → HO.S3 17:14
PROVIDERS: Admitting Provider Neurological Surgery; PCP Internal Medicine; Visit Provider Neurological Surgery
PROC: 0SG10A0 Fusion of 2 or more Lumbar Vertebral Joints with Interbody Fusion Device, Anterior Approach, Anterior Column, Open Approach (ICD-10-PCS; principal; 2024-04-21 10:50)
DX: M48.062 Spinal stenosis, lumbar region with neurogenic claudication (principal); M41.56 Other secondary scoliosis, lumbar region; M43.16 Spondylolisthesis, lumbar region; J44.9 Chronic obstructive pulmonary disease, unspecified; Z91.040 Latex allergy status; Z79.82 Long term (current) use of aspirin; Z79.899 Other long term (current) drug therapy
CPT/HCPCS: 86850; 86900; 86901; 94640; 97163; C1713; C1758; C9290; J0131; J0665; J1170; J1885; J2250; J2405; J2704; J3010; J3370; J3371; L8699

== ENCOUNTER → 2024-04-21 08:23 | Outpatient (BNV) | payer MEDICARE, SELFPAY | PROVIDERS: Admitting Provider Neurological Surgery; PCP Internal Medicine; Visit Provider Neurological Surgery | DX: M48.062 Spinal stenosis, lumbar region with neurogenic claudication (principal) | CPT/HCPCS: 20930; 22558; 22585; 22612; 22614; 22840; 22853; 99024; 99499; G0180 ==

== ENCOUNTER 2024-05-13 13:53 | Outpatient (AMB) | payer MEDICARE, SELFPAY ==
--- NOTE | 2024-05-13 14:21 | A.SPINEOV_ITS ---
Intake Visit Reasons: 1st post op Intake Note: Mr. Guidry is here today for his 1st post-op visit. Cleaning Professional Required: No Allergies amoxicillin [From Augmentin] Allergy (Severe, Verified 05/13/24 14:22) Chest Pain Chocolate Allergy (Severe, Verified 05/13/24 14:22) Migraine clavulanic acid [From Augmentin] Allergy (Severe, Verified 05/13/24 14:22) Chest Pain colesevelam [From WelChol] Allergy (Severe, Verified 05/13/24 14:22) Diarrhea diclofenac [From Voltaren] Allergy (Severe, Verified 05/13/24 14:22) dermatitis evolocumab [From Repatha SureClick] Allergy (Severe, Verified 05/13/24 14:22) abscess and Boils Latex, Natural Rubber Allergy (Severe, Verified 05/13/24 14:22) dermatitis metoprolol Allergy (Severe, Verified 05/13/24 14:22) bradycardia lethargic ticagrelor [From Brilinta] Allergy (Severe, Verified 05/13/24 14:22) Respiratory Distress atorvastatin [From Lipitor] Allergy (Verified 05/13/24 14:22) myositis rosuvastatin [From Crestor] Allergy (Verified 05/13/24 14:22) myositis aged cheese Allergy (Severe, Uncoded 02/06/24 10:15) Migraine Assessment & Plan Assessment & Plan (1) Spondylolisthesis, lumbar region: Code(s): M43.16 - Spondylolisthesis, lumbar region Category: Medical Plan: Mr guidry is 3 weeks out from his L3-4, L4-5 oblique lumbar interbody fusion. He has had complete relief of the pain down his leg. He has been dealing with back pain which we expect. He did develop a postoperative DVT in rehab. He was not on subQ heparin. He was immobile for time. He is now on Eliquis in his following up with the vascular specialist in [place]. He just returned home and is now under the care of his . He is getting home PT and VNA visits. His wounds have all healed up nicely on his back and on his left lower quadrant. We discussed activity guidelines, restrictions and expectations after lumbar fusion. I would like to see him back in 3-4 weeks with a set of x-rays. Luis Felipe Loya MD, PhD [facility] Orders: Orders XR lumbar spine 4V min Today M43.16 - Spondylolisthesis, lumbar region Coding Level of Care Code Global (51728) Diagnoses Spondylolisthesis, lumbar region M43.16
== END 2024-05-13 14:57 | disposition home or self-care (01) ==
PROVIDERS: PCP Internal Medicine; Visit Provider Physician Assistant
DX: M43.16 Spondylolisthesis, lumbar region (principal)
CPT/HCPCS: 99024

== ENCOUNTER 2024-05-13 13:53 | Outpatient (REF) | payer MEDICARE, SELFPAY | END 2024-05-13 13:54 | disposition home or self-care (01) | LOC: HO.HOSX 13:53 | PROVIDERS: PCP Internal Medicine; Visit Provider Physician Assistant | DX: M43.16 Spondylolisthesis, lumbar region (principal); Z98.1 Arthrodesis status; Z86.718 Personal history of other venous thrombosis and embolism; Z79.01 Long term (current) use of anticoagulants | CPT/HCPCS: 99212 ==

== ENCOUNTER 2024-06-17 12:48 | Outpatient (REF) | payer MEDICARE, SELFPAY ==
--- NOTE | ~2024-06-17 | XR_ITS ---
EXAMINATION: XR LUMBOSACRAL SPINE WITH FLEXION AND EXTENSION CLINICAL INFORMATION: Lumbar spondylolisthesis, status post TLIF. COMPARISON: 03/12/2024. TECHNIQUE: AP, flexion, extension, and lateral views of the lumbar spine. FINDINGS: No fracture, dislocation, or suspicious bony abnormality. Notable sclerotic endplate changes at L1-2, similar. There is a mild levoconvex scoliosis, apex at L4. There is a normal lordosis. There is a 6 mm anterolisthesis L4 on L5. 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 There has been posterior instrumented fusion of L3-L5 with bilateral pedicle screws and posterior connecting rods. There has been intervening disc replacements with prostheses at these levels. There is a suspicion for periprosthetic lucency surrounding the L5 screws. There is also present to some degree involving the left L3 screw, left L4 screw, and bilateral L5 screws. Findings suggest loosening. On flexion and extension views, there is only increase in the anterolisthesis of L4 on L5 by 1 mm. This does not meet criteria for instability. No developing subluxations. There are vascular calcifications and herniorrhaphy clips in the soft tissues. XR/XR lumbar spine 4V min IMPRESSION: 1. No acute fractures or compression deformities. 2. Posterior instrumented fusion L3-L5 as discussed. There appears to be brie-screw lucency surrounding several of the pedicle screws, suggesting hardware loosening. 3. Nonetheless, no evidence of instability is present on flexion and extension views. There is a stable 6 mm anterolisthesis L5 on S1. Electronically signed by: Juan Singleton MD 08/29/2024 08:41 PM [facility] [place]
== END 2024-06-17 12:49 | disposition home or self-care (01) ==
LOC: HO.XRAY 12:48
PROVIDERS: PCP Internal Medicine; Visit Provider Neurological Surgery
DX: M43.16 Spondylolisthesis, lumbar region (principal)
CPT/HCPCS: 72110; 99212

== ENCOUNTER → 2024-06-17 12:55 | Outpatient (BNV) | payer MEDICARE, SELFPAY | PROVIDERS: PCP Internal Medicine; Visit Provider Radiology Diagnostic Radiology | DX: M43.16 Spondylolisthesis, lumbar region (principal) | CPT/HCPCS: 72110 ==

== ENCOUNTER 2024-06-17 13:49 | Outpatient (AMB) | payer MEDICARE, SELFPAY ==
--- NOTE | 2024-06-17 13:53 | HO.SPINEOV ---
Intake Visit Reasons: 2nd post op with xrays Intake Note: Mr. Guidry is here today for his 2nd post-op with xrays. Venetian Blind Cleaner And Repairer Required: No Allergies amoxicillin [From Augmentin] Allergy (Severe, Verified 05/13/24 14:22) Chest Pain Chocolate Allergy (Severe, Verified 05/13/24 14:22) Migraine clavulanic acid [From Augmentin] Allergy (Severe, Verified 05/13/24 14:22) Chest Pain colesevelam [From WelChol] Allergy (Severe, Verified 05/13/24 14:22) Diarrhea diclofenac [From Voltaren] Allergy (Severe, Verified 05/13/24 14:22) dermatitis evolocumab [From Repatha SureClick] Allergy (Severe, Verified 05/13/24 14:22) abscess and Boils Latex, Natural Rubber Allergy (Severe, Verified 05/13/24 14:22) dermatitis metoprolol Allergy (Severe, Verified 05/13/24 14:22) bradycardia lethargic ticagrelor [From Brilinta] Allergy (Severe, Verified 05/13/24 14:22) Respiratory Distress atorvastatin [From Lipitor] Allergy (Verified 05/13/24 14:22) myositis rosuvastatin [From Crestor] Allergy (Verified 05/13/24 14:22) myositis aged cheese Allergy (Severe, Uncoded 02/06/24 10:15) Migraine Assessment & Plan Assessment & Plan (1) Spondylolisthesis, lumbar region: Code(s): M43.16 - Spondylolisthesis, lumbar region Category: Medical Plan Mr Guidry is now 2 months out from his scoliosis correction. He has been doing wonderful in terms of his back pain and being able to stand up straight in the leg pain that he had before surgery. Unfortunately he is come down with a diagnosis of Parkinson's disease. On our initial evaluation in the office, we suspect that there may have been a problem neurologically outside of his lumbar spine that was contributing to his trouble walking. It sounds like a diagnosis has been made but he has pending a visit with the neurologist for formal diagnosis. He has been started on Sinemet. His x-rays today look excellent. I told the the patient has no restrictions from my standpoint other than just to continue avoid heavy lifting and bending with his back. He can walk as much as he likes, resume normal ADLs etc.. We can see him back on an as-needed basis. Luis Felipe Loya MD, PhD [facility] Coding Level of Care Code Global (13968) Diagnoses Spondylolisthesis, lumbar region M43.16
== END 2024-06-17 14:34 | disposition home or self-care (01) ==
PROVIDERS: PCP Internal Medicine; Visit Provider Physician Assistant
DX: M43.16 Spondylolisthesis, lumbar region (principal)
CPT/HCPCS: 99024